=== PATIENT | male | born 1970 | race American Indian/Alaskan Native ===

== ENCOUNTER 2019-03-01 11:22 | Emergency (ER) | payer SELFPAY ==
--- NOTE | 2019-03-01 11:41 | Event Note ---
ED Screening Note Date of service: 03/01/19 Time: 11:36 ED Screening Note: This is a 48 y.o. M. that presents to the ER for medication refills. Reports being off medication for 2 weeks. Denies chest pain, sob, palpitations, weakness, dizziness, or headaches. This initial assessment/diagnostic orders/clinical plan/treatment(s) is/are subject to change based on patients health status, clinical progression and re- assessment by fellow clinical providers in the ED. Further treatment and workup at subsequent clinical providers discretion. Patient/guardian urged not to elope from the ED as their condition may be serious if not clinically assessed and managed. Initial orders include:
[2019-03-01] MEDS ORDERED: HCTZ PO ONE (13:03)
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
[2019-03-01 13:47] VITALS: BP 155/95
== END 2019-03-01 13:45 | disposition home or self-care (01) ==
LOC: ED 11:22
DX: I10 Essential (primary) hypertension (principal); F41.9 Anxiety disorder, unspecified; F17.200 Nicotine dependence, unspecified, uncomplicated; Z79.899 Other long term (current) drug therapy

== ENCOUNTER 2019-05-13 08:26 | Emergency (ER) | payer OTHER ==
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
--- NOTE | 2019-05-13 11:18 | Emergency Department Report ---
Chief Complaint: Recheck/Abnormal Lab/Rx Stated Complaint: MED REFILL Time Seen by Provider: 05/13/19 09:42 - HPI History of Present Illness: 48-year-old male patient presents for medication refillsx today. Patient states he has been out of his medications for the past 2 weeks due to loss of insurance. He states that he recently was approved for insurance but it does not start further about 45 days. Patient is requesting refills on lisinopril, hydrochlorothiazide, duloxetine, and amitriptyline. Patient does present with his medication bottles and all prescription information. He denies any chest pain, shortness of breath, headaches or other complaints or concerns - Exam Physical Exam: Patient is nontoxic appearing and in no acute distress Normal heart rate and rhythm noted Normal breath sounds noted. No respiratory distress noted Patient is alert and oriented 3 Patient has normal mood and affect MSE screening note: Focused history and physical exam performed. Due to findings the following was ordered: Patient presents for medication refills. Patient states he does not currently have a primary care provider. His vitals are within normal limits. Patient is nontoxic appearing. Patient does not meet criteria for emergent care; there is no threat of loss of life or limb. Patient referred to Dr. Irene, primary care for indication refills and further evaluation. ED Disposition for MSE Clinical Impression: Medication refill Disposition: DC-01 TO HOME OR SELFCARE Is pt being admited?: No Condition: Stable Additional Instructions: Hugo follow up with Dr. Kelly as discussed.
== END 2019-05-13 11:40 | disposition home or self-care (01) ==
LOC: ED 08:26
DX: I10 Essential (primary) hypertension (principal); Z76.0 Encounter for issue of repeat prescription

== ENCOUNTER 2021-05-25 20:07 | Inpatient (IN) | payer OTHER, MEDICARE ==
[2021-05-25] MEDS ORDERED: ACETAMINOPHEN W/CODEINE 300-30 MG TAB PO ONE (20:26)
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
[2021-05-25] MEDS ORDERED: SODIUM CHLORIDE 0.9% 1000 ML 1,000 ML IV ONE (21:27)
[2021-05-25] MEDS ORDERED: cefTRIAXone/NS 1 GM/50 ML 1 GM/50 ML BAG IV ONE (21:27)
[2021-05-25 22:04] LABS: Basophils # (Auto) 0.1 K/mm3 (0.0-0.1); Eosinophils # (Auto) 0.1 K/mm3 (0.0-0.4); Eosinophils % (Auto) 1.5 % (0.0-4.3); Hematocrit 44.7 % (35.5-45.6); Hemoglobin 14.8 gm/dl (11.8-15.2); Lymphocytes # (Auto) 1.5 K/mm3 (1.2-5.4); Lymphocytes % (Auto) 19.6 % (13.4-35.0); Mean Corpuscular HGB Conc 33 % (32-34); Mean Corpuscular Volume 90 fl (84-94); Monocytes # (Auto) 0.5 K/mm3 (0.0-0.8); Monocytes % (Auto) 6.6 % (0.0-7.3); Platelet Count 385 K/mm3 (140-440); Red Blood Count 4.98 M/mm3 (3.65-5.03); Red Cell Distribution Width 13.8 % (13.2-15.2)
[2021-05-25] MEDS ORDERED: AZITHROMYCIN 250 MG TAB PO ONE (22:08)
[2021-05-25 22:31] LABS: Alanine Aminotransferase 20 units/L (7-56); Albumin 3.6 g/dL (3.9-5); BUN/Creatinine Ratio 5; Blood Urea Nitrogen 4 mg/dL (9-20); Calcium 8.9 mg/dL (8.4-10.2); Hemolysis Index 116
[2021-05-25] MEDS ORDERED: IPRATROPIUM/ALBUTEROL SULFATE 3 ML AMPUL.NEB IH ONE (22:48)
[2021-05-25] MEDS ORDERED: dexAMETHasone 20 MG/5 ML VIAL IV ONE (22:48)
[2021-05-26] MEDS ORDERED: ALBUTEROL 2.5 MG/3 ML NEBU IH PRN (01:16)
[2021-05-26] MEDS ORDERED: hydrALAZINE 20 MG/1 ML INJ IV PRN (01:19)
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
[2021-05-26] MEDS: IPRATROPIUM/ALBUTEROL SULFATE 3 ML AMPUL.NEB IH SCH ×4 (02:14→22:06)
[2021-05-26] MEDS: ACETAMINOPHEN 325 MG TAB PO PRN (04:28)
[2021-05-26] MEDS ORDERED: SODIUM CHLORIDE 0.9% 1000 ML 1,000 ML IV ONE (05:18)
[2021-05-26] MEDS: FAMOTIDINE 20 MG TAB PO SCH ×2 (10:42→22:07)
[2021-05-26] MEDS: HYDROmorphone 1 MG/1 ML INJ IV PRN ×2 (10:49→15:21)
[2021-05-26] MEDS: ONDANSETRON 4 MG/2 ML INJ IV PRN (18:42)
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
[2021-05-26 19:17] LABS: C-Reactive Protein 2.4 mg/dL (0.00-1.30)
[2021-05-26] MEDS ORDERED: dexAMETHasone 4 MG/ML VIAL IV SCH (22:00)
[2021-05-26] MEDS ORDERED: AZITHROMYCIN/NS 500 MG/250 ML 500 MG/250 ML BAG IV SCH (22:00)
[2021-05-26] MEDS: cefTRIAXone/NS 2 GM/100 ML 2 GM/100 ML BAG IV SCH (22:07)
[2021-05-26] MEDS: AZITHROMYCIN 250 MG TAB PO SCH (22:07)
[2021-05-27] MEDS: HYDROmorphone 1 MG/1 ML INJ IV PRN ×3 (00:01→22:41)
[2021-05-27] MEDS: ZOLPIDEM 5 MG TAB PO PRN ×2 (00:11→22:40)
[2021-05-27] MEDS: IPRATROPIUM/ALBUTEROL SULFATE 3 ML AMPUL.NEB IH SCH ×5 (03:02→20:33)
[2021-05-27 05:25] LABS: Hemoglobin 13.4 gm/dl (11.8-15.2); Mean Corpuscular HGB Conc 34 % (32-34); Mean Corpuscular Volume 89 fl (84-94); Red Blood Count 4.52 M/mm3 (3.65-5.03)
[2021-05-27 05:42] LABS: BUN/Creatinine Ratio 13; Blood Urea Nitrogen 10 mg/dL (9-20); Calcium 8.1 mg/dL (8.4-10.2); Hemolysis Index 1
[2021-05-27 06:42] LABS: Basophils % (Manual) 0 % (0.0-1.8); Eosinophils % (Manual) 0 % (0.0-4.3); Monocytes % (Manual) 0 % (0.0-7.3); Total Cells Counted 100
[2021-05-27 06:44] LABS: Spherocytes Rare
[2021-05-27 06:45] LABS: Platelet Estimate Consistent w Auto
[2021-05-27 06:55] LABS: Platelet Count 366 K/mm3 (140-440)
[2021-05-27] MEDS: FAMOTIDINE 20 MG TAB PO SCH ×2 (09:45→22:27)
[2021-05-27] MEDS: DEXAMETHASONE 4 MG TAB PO SCH (09:45)
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
[2021-05-27] MEDS ORDERED: REMDESIVIR 200 MG in SODIUM CHLORIDE 0.9% 250ML 250 ML IV ONE (14:22)
[2021-05-27 16:29] LABS: Alanine Aminotransferase 21 units/L (7-56); Albumin 3.2 g/dL (3.9-5); BUN/Creatinine Ratio 13; Blood Urea Nitrogen 9 mg/dL (9-20); Calcium 8.4 mg/dL (8.4-10.2); Hemolysis Index 6
[2021-05-27] MEDS ORDERED: SODIUM CHLORIDE 0.9% 50 ML IVPB IV SCH (21:00)
[2021-05-27] MEDS: cefTRIAXone/NS 2 GM/100 ML 2 GM/100 ML BAG IV SCH (22:27)
[2021-05-27] MEDS: AZITHROMYCIN 250 MG TAB PO SCH (22:27)
[2021-05-27] MEDS: ONDANSETRON 4 MG/2 ML INJ IV PRN (22:45)
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
[2021-05-28] MEDS: ACETAMINOPHEN 325 MG TAB PO PRN (04:47)
[2021-05-28 07:07] LABS: Alanine Aminotransferase 21 units/L (7-56); BUN/Creatinine Ratio 9; Blood Urea Nitrogen 7 mg/dL (9-20); Calcium 8.1 mg/dL (8.4-10.2); Hemolysis Index 121
[2021-05-28] MEDS ORDERED: IPRATROPIUM/ALBUTEROL SULFATE 3 ML AMPUL.NEB IH SCH (08:00)
[2021-05-28] MEDS: FAMOTIDINE 20 MG TAB PO SCH ×2 (09:08→21:42)
[2021-05-28] MEDS: MORPHINE 2 MG/1 ML INJ IV PRN ×2 (09:08→13:50)
[2021-05-28] MEDS: DEXAMETHASONE 4 MG TAB PO SCH (09:39)
[2021-05-28] MEDS ORDERED: ALPRAZolam 1 MG TAB PO PRN (14:00)
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
[2021-05-28] MEDS ORDERED: REMDESIVIR 100 MG in SODIUM CHLORIDE 0.9% 250ML 250 ML IV SCH (21:00)
[2021-05-28] MEDS: hydroCHLOROthiazide 25 MG TAB PO SCH (21:42)
[2021-05-28] MEDS: AMITRIPTYLINE 25 MG TAB PO SCH (21:42)
[2021-05-28] MEDS: AZITHROMYCIN 250 MG TAB PO SCH (21:42)
[2021-05-28] MEDS: amLODIPine 10 MG TAB PO SCH (21:43)
[2021-05-28] MEDS: DULoxetine 30 MG CAP PO SCH (21:43)
[2021-05-28] MEDS: cefTRIAXone/NS 2 GM/100 ML 2 GM/100 ML BAG IV SCH (21:43)
[2021-05-28] MEDS ORDERED: AMITRIPTYLINE 50 MG PO SCH (22:00)
[2021-05-29] MEDS: MORPHINE 2 MG/1 ML INJ IV PRN ×4 (00:45→21:35)
[2021-05-29] MEDS: amLODIPine 10 MG TAB PO SCH (09:06)
[2021-05-29] MEDS: hydroCHLOROthiazide 25 MG TAB PO SCH (09:06)
[2021-05-29] MEDS: FAMOTIDINE 20 MG TAB PO SCH ×2 (09:06→21:35)
[2021-05-29] MEDS: DULoxetine 30 MG CAP PO SCH (09:06)
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
[2021-05-29 11:13] LABS: Alanine Aminotransferase 22 units/L (7-56); Albumin 3.2 g/dL (3.9-5); Blood Urea Nitrogen 5 mg/dL (9-20); Calcium 8.7 mg/dL (8.4-10.2); Hemolysis Index 8
[2021-05-29 11:19] LABS: BUN/Creatinine Ratio 8
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
[2021-05-29] MEDS ORDERED: POTASSIUM CHLORIDE ER 20 MEQ TAB PO NR ×2 (13:30→17:00)
[2021-05-29] MEDS: AMITRIPTYLINE 25 MG TAB PO SCH (21:35)
[2021-05-29] MEDS: cefTRIAXone/NS 2 GM/100 ML 2 GM/100 ML BAG IV SCH (21:35)
[2021-05-29] MEDS: AZITHROMYCIN 250 MG TAB PO SCH (21:36)
[2021-05-30] MEDS: MORPHINE 2 MG/1 ML INJ IV PRN ×4 (02:51→21:25)
[2021-05-30 07:25] LABS: Basophils % (Auto) 0.6 % (0.0-1.8); Eosinophils # (Auto) 0.4 K/mm3 (0.0-0.4); Hematocrit 43.3 % (35.5-45.6); Lymphocytes # (Auto) 1.3 K/mm3 (1.2-5.4); Lymphocytes % (Auto) 17.3 % (13.4-35.0); Mean Corpuscular HGB Conc 32 % (32-34); Mean Corpuscular Volume 88 fl (84-94); Monocytes # (Auto) 0.8 K/mm3 (0.0-0.8); Monocytes % (Auto) 10.7 % (0.0-7.3); Platelet Count 321 K/mm3 (140-440); Red Blood Count 4.95 M/mm3 (3.65-5.03); Red Cell Distribution Width 13.7 % (13.2-15.2)
[2021-05-30 07:41] LABS: Alanine Aminotransferase 17 units/L (7-56); Albumin 3.1 g/dL (3.9-5); BUN/Creatinine Ratio 9; Blood Urea Nitrogen 7 mg/dL (9-20); Calcium 8.1 mg/dL (8.4-10.2); Hemolysis Index 1
[2021-05-30 07:42] LABS: BUN/Creatinine Ratio 9; Blood Urea Nitrogen 7 mg/dL (9-20); Calcium 8.4 mg/dL (8.4-10.2); Hemolysis Index 4
[2021-05-30] MEDS ORDERED: POTASSIUM CHLORIDE ER 20 MEQ TAB PO NR ×2 (08:30→12:00)
[2021-05-30] MEDS: FAMOTIDINE 20 MG TAB PO SCH ×2 (09:01→21:21)
[2021-05-30] MEDS: hydroCHLOROthiazide 25 MG TAB PO SCH (09:01)
[2021-05-30] MEDS: amLODIPine 10 MG TAB PO SCH (09:01)
[2021-05-30] MEDS: DULoxetine 30 MG CAP PO SCH (09:01)
[2021-05-30] MEDS: HYDROmorphone 1 MG/1 ML INJ IV PRN ×3 (09:45→17:30)
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
[2021-05-30] MEDS: AZITHROMYCIN 250 MG TAB PO SCH (21:21)
[2021-05-30] MEDS: AMITRIPTYLINE 25 MG TAB PO SCH (21:22)
[2021-05-31] MEDS: MORPHINE 2 MG/1 ML INJ IV PRN ×3 (03:54→15:27)
[2021-05-31] MEDS: amLODIPine 10 MG TAB PO SCH (09:23)
[2021-05-31] MEDS: hydroCHLOROthiazide 25 MG TAB PO SCH (09:23)
[2021-05-31] MEDS: DULoxetine 30 MG CAP PO SCH (09:23)
[2021-05-31] MEDS: FAMOTIDINE 20 MG TAB PO SCH ×2 (09:23→21:15)
[2021-05-31] MEDS: POTASSIUM CHLORIDE ER 20 MEQ TAB PO SCH (09:24)
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
--- NOTE | 2021-05-31 15:54 | XRay Report ---
Chest 2 views INDICATION: Dyspnea IMPRESSION: Moderate bilateral cardiopulmonary edema with small bilateral pleural effusions. The hear t size is mildly enlarged. Signer Name: Ashwin Coe MD Signed: 05/31/2021 3:49 PM Workstation Name: [id number]
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
[2021-05-31] MEDS: HYDROmorphone 1 MG/1 ML INJ IV PRN (21:14)
[2021-05-31] MEDS: AMITRIPTYLINE 25 MG TAB PO SCH (21:15)
[2021-06-01] MEDS: MORPHINE 2 MG/1 ML INJ IV PRN (01:16)
[2021-06-01] MEDS: HYDROmorphone 1 MG/1 ML INJ IV PRN ×4 (05:49→19:49)
[2021-06-01] MEDS ORDERED: POTASSIUM CHLORIDE ER 20 MEQ TAB PO NR (08:30)
[2021-06-01] MEDS: POTASSIUM CHLORIDE ER 20 MEQ TAB PO SCH (11:10)
[2021-06-01] MEDS: FAMOTIDINE 20 MG TAB PO SCH ×2 (11:10→21:22)
[2021-06-01] MEDS: DULoxetine 30 MG CAP PO SCH (11:11)
[2021-06-01] MEDS: FUROSEMIDE 40 MG/4 ML INJ IV SCH (11:16)
[2021-06-01] MEDS: LISINOPRIL 5 MG TAB PO SCH (11:16)
[2021-06-01] MEDS: amLODIPine 10 MG TAB PO SCH (11:16)
[2021-06-01] MEDS: carvediloL 3.125 MG TAB PO SCH ×2 (11:17→21:22)
[2021-06-01] MEDS: hydroCHLOROthiazide 25 MG TAB PO SCH (11:18)
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
[2021-06-01] MEDS: ASPIRIN EC 325 MG TAB PO SCH (15:03)
[2021-06-01] MEDS: AMITRIPTYLINE 25 MG TAB PO SCH (21:22)
[2021-06-02] MEDS: HYDROmorphone 1 MG/1 ML INJ IV PRN ×6 (00:10→22:02)
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
[2021-06-02] MEDS: ASPIRIN EC 325 MG TAB PO SCH (09:28)
[2021-06-02] MEDS: FAMOTIDINE 20 MG TAB PO SCH ×2 (09:28→21:59)
[2021-06-02] MEDS: hydroCHLOROthiazide 25 MG TAB PO SCH (09:29)
[2021-06-02] MEDS: LISINOPRIL 5 MG TAB PO SCH (09:29)
[2021-06-02] MEDS: amLODIPine 10 MG TAB PO SCH (09:29)
[2021-06-02] MEDS: carvediloL 3.125 MG TAB PO SCH ×2 (09:30→22:00)
[2021-06-02] MEDS: FUROSEMIDE 40 MG/4 ML INJ IV SCH (09:30)
[2021-06-02] MEDS: POTASSIUM CHLORIDE ER 20 MEQ TAB PO SCH (09:30)
[2021-06-02] MEDS: DULoxetine 30 MG CAP PO SCH (09:30)
[2021-06-02 11:38] LABS: BUN/Creatinine Ratio 11; Blood Urea Nitrogen 10 mg/dL (9-20); Calcium 8.4 mg/dL (8.4-10.2); Hemolysis Index 2
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
--- NOTE | 2021-06-02 13:50 | Progress Note ---
Assessment and Plan - Patient Problems (1) CHF (congestive heart failure) Current Visit: Yes Status: Acute Subjective Date of service: 06/02/21 Principal diagnosis: Pneumonia, acute respiratory failure with hypoxia Interval history: FEELS ALITTLE BETTER,,,MILD CP Objective Vital Signs Temp Pulse Resp BP Pulse Ox 06/02/21 12:17 98.0 F 109 H 18 110/78 91 06/02/21 08:01 98.2 F 109 H 18 100/61 95 06/02/21 04:49 97.5 F L 110 H 20 118/73 97 06/02/21 00:07 98.0 F 110 H 20 120/73 96 06/01/21 21:43 95 06/01/21 20:26 98.5 F 101 H 20 132/78 95 06/01/21 20:00 102 H 06/01/21 18:32 94 06/01/21 16:36 98.2 F 106 H 18 119/82 94 - Physical Examination General: No Apparent Distress HEENT: Positive: Normocephaly Neck: Positive: neck supple Cardiac: Positive: Regular Rhythm Lungs: Positive: clear to auscultation Neuro: Positive: Grossly Intact Abdomen: Positive: Unremarkable Extremities: Present: normal - Labs and Meds Comprehensive Metabolic Panel 06/02/21 Range/Units 10:52 Sodium 132 L D (137-145) mmol/L Potassium 3.7 D (3.6-5.0) mmol/L Chloride 95.5 L (98-107) mmol/L Carbon Dioxide 29 (22-30) mmol/L BUN 10 (9-20) mg/dL Creatinine 0.9 (0.8-1.3) mg/dL Glucose 95 (75-100) mg/dL Calcium 8.4 (8.4-10.2) mg/dL
--- NOTE | 2021-06-02 20:09 | Electrocardiograph Report ---
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
[2021-06-02] MEDS: AMITRIPTYLINE 25 MG TAB PO SCH (21:59)
[2021-06-03] MEDS: HYDROmorphone 1 MG/1 ML INJ IV PRN ×6 (01:19→23:17)
[2021-06-03 07:58] LABS: Basophils # (Auto) 0.1 K/mm3 (0.0-0.1); Basophils % (Auto) 2.1 % (0.0-1.8); Eosinophils # (Auto) 0.3 K/mm3 (0.0-0.4); Hematocrit 40.9 % (35.5-45.6); Hemoglobin 13.5 gm/dl (11.8-15.2); Lymphocytes # (Auto) 1.4 K/mm3 (1.2-5.4); Lymphocytes % (Auto) 30.3 % (13.4-35.0); Mean Corpuscular HGB Conc 33 % (32-34); Mean Corpuscular Volume 88 fl (84-94); Monocytes # (Auto) 0.6 K/mm3 (0.0-0.8); Monocytes % (Auto) 13.5 % (0.0-7.3); Platelet Count 352 K/mm3 (140-440); Red Blood Count 4.67 M/mm3 (3.65-5.03); Red Cell Distribution Width 13.6 % (13.2-15.2)
[2021-06-03 08:19] LABS: BUN/Creatinine Ratio 14; Blood Urea Nitrogen 11 mg/dL (9-20); Calcium 8.9 mg/dL (8.4-10.2); Hemolysis Index 1
[2021-06-03] MEDS ORDERED: REGADENOSON 0.4 MG/5 ML INJ IV ONE ×2 (08:27→11:05)
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
[2021-06-03] MEDS: carvediloL 3.125 MG TAB PO SCH ×2 (13:27→21:55)
[2021-06-03] MEDS: ASPIRIN EC 325 MG TAB PO SCH (13:27)
[2021-06-03] MEDS: POTASSIUM CHLORIDE ER 20 MEQ TAB PO SCH (13:27)
[2021-06-03] MEDS: amLODIPine 10 MG TAB PO SCH (13:27)
[2021-06-03] MEDS: DULoxetine 30 MG CAP PO SCH (13:28)
[2021-06-03] MEDS: FUROSEMIDE 40 MG/4 ML INJ IV SCH (13:28)
[2021-06-03] MEDS: LISINOPRIL 5 MG TAB PO SCH (13:28)
[2021-06-03] MEDS: FAMOTIDINE 20 MG TAB PO SCH ×2 (13:28→21:55)
--- NOTE | 2021-06-03 13:29 | Progress Note ---
Assessment and Plan - Patient Problems (1) CHF (congestive heart failure) Current Visit: Yes Status: Acute Plan to address problem: Patient presents with shortness of breath, bilateral interstitial infiltrates, and an underlying dilated cardiomyopathy with ejection fraction reported 20 to 25%. Chronicity of the cardiomyopathy is uncertain, patient denies any prior cardiac history or significant prior cardiac work-up. We will continue guideline directed medical therapy including optimal diuretics. Today, he has completed a Lexiscan thallium stress test, myocardial perfusion images are pending. Subjective Date of service: 06/03/21 Principal diagnosis: Pneumonia, acute respiratory failure with hypoxia Interval history: 50-year-old man who was admitted with apparent new onset congestive heart failure. He states that he has no prior cardiac history, has not seen a timber faller in the past. He does follow-up with his primary doctor at [facility], who treats him for chronic longstanding and by his account poorly controlled hypertension. On this presentation, his blood pressure has been fairly well controlled. The c hest x-ray on admission showed bilateral patchy infiltrates, which is showing partial resolution on follow-up chest x-ray 2 to 3 days later. EKG was a sinus rhythm with no acute ischemic changes. However the echocardiogram showed dilated cardiomyopathy with left ventricular ejection fraction reported at 20 to 25%. Today, the patient was referred for a Lexiscan thallium stress test for ischemia assessment of his cardiomyopathy and heart failure. Objective Vital Signs Temp Pulse Pulse Resp BP Pulse Ox 06/03/21 10:37 0 L 06/03/21 03:12 98.0 F 100 H 16 105/70 95 06/02/21 23:04 98.1 F 106 H 14 121/79 94 06/02/21 19:15 97.6 F 101 H 14 135/84 95 06/02/21 16:29 97.4 F L 100 H 18 127/83 97 06/02/21 15:38 111 H 95 - Physical Examination General: No Apparent Distress HEENT: Positive: Normocephaly Neck: Positive: neck supple Cardiac: Positive: Reg Rate and Rhythm Lungs: Positive: Decreased Breath Sounds Neuro: Positive: Grossly Intact Abdomen: Positive: Unremarkable Skin: Positive: Clear Extremities: Absent: edema - Labs and Meds CBC 06/03/21 Range/Units 07:14 WBC 4.6 (4.5-11.0) K/mm3 RBC 4.67 (3.65-5.03) M/mm3 Hgb 13.5 (11.8-15.2) gm/dl Hct 40.9 (35.5-45.6) % Plt Count 352 (140-440) K/mm3 Lymph # (Auto) 1.4 (1.2-5.4) K/mm3 [place] # (Auto) 0.6 (0.0-0.8) K/mm3 Eos # (Auto) 0.3 (0.0-0.4) K/mm3 Baso # (Auto) 0.1 (0.0-0.1) K/mm3 Comprehensive Metabolic Panel 06/03/21 Range/Units 07:14 Sodium 141 D (137-145) mmol/L Potassium 3.9 (3.6-5.0) mmol/L Chloride 100.9 (98-107) mmol/L Carbon Dioxide 27 (22-30) mmol/L BUN 11 (9-20) mg/dL Creatinine 0.8 (0.8-1.3) mg/dL Glucose 90 (75-100) mg/dL Calcium 8.9 (8.4-10.2) mg/dL
--- NOTE | 2021-06-03 13:42 | Progress Note ---
Assessment and Plan 50 y/o male with systolic heart failure and acute respiratory failure. 1. Diuresis 2. Monitor fluid balance 3. Follow up cards recs Subjective Date of service: 06/03/21 Principal diagnosis: Pneumonia, acute respiratory failure with hypoxia Interval history: No acute events. Objective Vital Signs - 12hr 06/03/21 06/03/21 06/03/21 03:12 10:37 13:26 Temperature 98.0 F 98.0 F Pulse Rate 100 H 104 H Respiratory 16 19 Rate Blood Pressure 105/70 138/67 O2 Sat by Pulse 95 0 L 98 Oximetry Constitutional: no acute distress Eyes: non-icteric ENT: oropharynx moist, other (Crowded oropharynx Mallampati 3) Neck: supple, no JVD Ascultation: Bilateral: clear, diminished breath sounds (At bases) Cardiovascular: regular rate and rhythm Gastrointestinal: normoactive bowel sounds, soft, non-tender Integumentary: normal Extremities: no cyanosis, no edema Neurologic: normal mental status, non-focal exam Psychiatric: mood appropriate CBC and BMP: 06/03/21 07:14 06/03/21 07:14 ABG, PT/INR, D-dimer: PT/INR, D-dimer D-Dimer 544.22 ng/mlDDU (0-234) H 05/26/21 18:43 Abnormal lab findings: Abnormal Labs 05/25/21 05/25/21 05/25/21 21:47 21:47 21:47 [place] % (Auto) Eos % (Auto) Baso % (Auto) Seg Neutrophils % 71.3 H Seg Neuts % (Manual) Lymphocytes % (Manual) Seg Neutrophils # Man Lymphocytes # (Manual) D-Dimer Sodium Potassium Chloride Carbon Dioxide BUN 4 L Creatinine Glucose 111 H Lactic Acid 2.10 H* Calcium Lactate Dehydrogenase C-Reactive Protein NT-Pro-B Natriuret Pep Total Protein Albumin 3.6 L 05/25/21 05/26/21 05/26/21 23:25 04:22 07:48 [place] % (Auto) Eos % (Auto) Baso % (Auto) Seg Neutrophils % Seg Neuts % (Manual) Lymphocytes % (Manual) Seg Neutrophils # Man Lymphocytes # (Manual) D-Dimer Sodium Potassium Chloride Carbon Dioxide BUN Creatinine Glucose Lactic Acid 2.20 H* 2.70 H* 2.70 H* Calcium Lactate Dehydrogenase C-Reactive Protein NT-Pro-B Natriuret Pep Total Protein Albumin 05/26/21 05/26/21 05/27/21 18:43 18:43 04:32 [place] % (Auto) Eos % (Auto) Baso % (Auto) Seg Neutrophils % Seg Neuts % (Manual) 99.0 H Lymphocytes % (Manual) 1.0 L Seg Neutrophils # Man 9.2 H Lymphocytes # (Manual) 0.1 L D-Dimer 544.22 H Sodium Potassium Chloride Carbon Dioxide BUN Creatinine Glucose 108 H Lactic Acid Calcium Lactate Dehydrogenase 263 H C-Reactive Protein 2.40 H NT-Pro-B Natriuret Pep Total Protein Albumin 05/27/21 05/27/21 05/28/21 04:32 15:33 05:35 [place] % (Auto) Eos % (Auto) Baso % (Auto) Seg Neutrophils % Seg Neuts % (Manual) Lymphocytes % (Manual) Seg Neutrophils # Man Lymphocytes # (Manual) D-Dimer Sodium 130 L D Potassium 3.2 L Chloride 97.3 L Carbon Dioxide 16 L D BUN 7 L Creatinine 0.7 L Glucose 121 H 101 H 105 H Lactic Acid Calcium 8.1 L 8.1 L Lactate Dehydrogenase C-Reactive Protein NT-Pro-B Natriuret Pep Total Protein 6.1 L Albumin 3.2 L 3.0 L 05/29/21 05/30/21 05/30/21 10:06 06:43 06:43 [place] % (Auto) 10.7 H Eos % (Auto) 5.0 H Baso % (Auto) Seg Neutrophils % Seg Neuts % (Manual) Lymphocytes % (Manual) Seg Neutrophils # Man Lymphocytes # (Manual) D-Dimer Sodium Potassium 3.0 L 3.1 L Chloride 97.9 L 97.3 L Carbon Dioxide 31 H BUN 5 L 7 L Creatinine 0.6 L Glucose Lactic Acid Calcium 8.1 L Lactate Dehydrogenase C-Reactive Protein NT-Pro-B Natriuret Pep Total Protein 6.1 L Albumin 3.2 L 3.1 L 05/30/21 05/30/21 05/31/21 06:43 06:43 15:46 [place] % (Auto) Eos % (Auto) Baso % (Auto) Seg Neutrophils % Seg Neuts % (Manual) Lymphocytes % (Manual) Seg Neutrophils # Man Lymphocytes # (Manual) D-Dimer Sodium Potassium 3.0 L Chloride Carbon Dioxide BUN 7 L Creatinine Glucose Lactic Acid Calcium Lactate Dehydrogenase C-Reactive Protein NT-Pro-B Natriuret Pep 3384 H 2071 H Total Protein Albumin 06/02/21 06/03/21 10:52 07:14 [place] % (Auto) 13.5 H Eos % (Auto) 6.0 H Baso % (Auto) 2.1 H Seg Neutrophils % Seg Neuts % (Manual) Lymphocytes % (Manual) Seg Neutrophils # Man Lymphocytes # (Manual) D-Dimer Sodium 132 L D Potassium Chloride 95.5 L Carbon Dioxide BUN Creatinine Glucose Lactic Acid Calcium Lactate Dehydrogenase C-Reactive Protein NT-Pro-B Natriuret Pep Total Protein Albumin
--- NOTE | 2021-06-03 13:47 | Nuclear Medicine Report ---
APPROVED REPORT Exam: Nuclear Stress Test Indication: Chest pain BMI: 0 Stress Test Details HR Max Heart Rate (APMHR): 169 bpm Target HR (85% APMHR): 143 bpm BP ECG Resting ECG: Sinus Rhythm Stress ECG: Sinus Rhythm ST Change: None Arrhythmia: APC's Recovery ECG: Sinus Rhythm Recovery ST Change: None Recovery Arrhythmia: APC Clinical Reason for Termination: Completed protocol Stress ECG Conclusion Patient completed pharmacologic stress protocol, no chest pain and no ST changes of ischemia. Myocardial perfusion images are dictated separately. NM EXAM: Myocardial Perfusion REST/STRESS Resting Data Rest SPECT myocardial perfusion imaging was performed in supine position 45 minutes following the intravenous injection of 10 mCi of Tc-99m Myoview. Time of rest injection: 0800 Date: 06/03/2021 Pharmacologic Stress Pharmacologic stress test was performed by injecting Regadenoson 0.4 mg IV push followed by the intravenous injection of 28 mCi of Tc-99m Myoview. Time of stress injection: Date: 06/03/2021 Study Data TID = 1.05. Perfusion Wall Motion The left ventricle is severely dilated, with severe left ventricular systolic dysfunction, diffuse hypokinesis, ejection fraction 22% by gated SPECT analysis. Nuclear Conclusion ECG Findings: negative for ischemia Clinical Findings: negative for ischemia Nuclear Findings: negative for ischemia Left Ventricular Function: abnormal Risk Study: moderate The left ventricle is severely dilated, with a severe related cardiomyopathy, ejection fraction 22%. Perfusion images show somewhat heterogeneous uptake but no significant fixed or reversible defects, study suggest a nonischemic cardiomyopathy. Clinical correlation is recommended. Conclusion Patient completed pharmacologic stress protocol, no chest pain and no ST changes of ischemia. Myocardial perfusion images are dictated separately.
[2021-06-03] MEDS: AMITRIPTYLINE 25 MG TAB PO SCH (21:57)
[2021-06-04] MEDS: HYDROmorphone 1 MG/1 ML INJ IV PRN ×3 (03:28→13:06)
[2021-06-04 07:49] VITALS: BP 111/70
[2021-06-04] MEDS: POTASSIUM CHLORIDE ER 20 MEQ TAB PO SCH (09:20)
[2021-06-04] MEDS: ASPIRIN EC 325 MG TAB PO SCH (09:21)
[2021-06-04] MEDS: carvediloL 3.125 MG TAB PO SCH (09:21)
[2021-06-04] MEDS: LISINOPRIL 5 MG TAB PO SCH (09:21)
[2021-06-04] MEDS: FAMOTIDINE 20 MG TAB PO SCH (09:21)
[2021-06-04] MEDS: amLODIPine 10 MG TAB PO SCH (09:22)
[2021-06-04] MEDS: DULoxetine 30 MG CAP PO SCH (09:24)
--- NOTE | 2021-06-04 09:25 | Progress Note ---
Assessment and Plan 50 y/o male with systolic heart failure and acute respiratory failure. 06/04/21: Pulm status improved with diuresis. No evidence of underlying lung disease. Will stop albuterol and sign off 1. Diuresis 2. Monitor fluid balance 3. Follow up cards recs Subjective Date of service: 06/04/21 Principal diagnosis: Pneumonia, acute respiratory failure with hypoxia Interval history: Per chart, last night weaned to room air. Objective Vital Signs - 12hr 06/03/21 06/04/21 06/04/21 21:55 00:00 03:16 Temperature 97.9 F 98.1 F Pulse Rate 92 H 92 H 102 H Respiratory 18 18 Rate Blood Pressure 117/73 123/75 Blood Pressure 110/76 [Right] O2 Sat by Pulse 100 97 Oximetry 06/04/21 06/04/21 06:00 07:47 Temperature 98.0 F Pulse Rate 103 H Respiratory 20 Rate Blood Pressure 111/70 Blood Pressure [Right] O2 Sat by Pulse 98 98 Oximetry Constitutional: no acute distress Eyes: non-icteric ENT: oropharynx moist, other (Crowded oropharynx Mallampati 3) Neck: supple, no JVD Ascultation: Bilateral: clear, diminished breath sounds (At bases) Cardiovascular: regular rate and rhythm Gastrointestinal: normoactive bowel sounds, soft, non-tender Integumentary: normal Extremities: no cyanosis, no edema Neurologic: normal mental status, non-focal exam Psychiatric: mood appropriate CBC and BMP: 06/03/21 07:14 06/03/21 07:14 ABG, PT/INR, D-dimer: PT/INR, D-dimer D-Dimer 544.22 ng/mlDDU (0-234) H 05/26/21 18:43 Abnormal lab findings: Abnormal Labs 05/25/21 05/25/21 05/25/21 21:47 21:47 21:47 [place] % (Auto) Eos % (Auto) Baso % (Auto) Seg Neutrophils % 71.3 H Seg Neuts % (Manual) Lymphocytes % (Manual) Seg Neutrophils # Man Lymphocytes # (Manual) D-Dimer Sodium Potassium Chloride Carbon Dioxide BUN 4 L Creatinine Glucose 111 H Lactic Acid 2.10 H* Calcium Lactate Dehydrogenase C-Reactive Protein NT-Pro-B Natriuret Pep Total Protein Albumin 3.6 L 05/25/21 05/26/2105/26/22 23:25 04:22 07:48 [place] % (Auto) Eos % (Auto) Baso % (Auto) Seg Neutrophils % Seg Neuts % (Manual) Lymphocytes % (Manual) Seg Neutrophils # Man Lymphocytes # (Manual) D-Dimer Sodium Potassium Chloride Carbon Dioxide BUN Creatinine Glucose Lactic Acid 2.20 H* 2.70 H* 2.70 H* Calcium Lactate Dehydrogenase C-Reactive Protein NT-Pro-B Natriuret Pep Total Protein Albumin 05/26/21 05/26/21 05/27/21 18:43 18:43 04:32 [place] % (Auto) Eos % (Auto) Baso % (Auto) Seg Neutrophils % Seg Neuts % (Manual) 99.0 H Lymphocytes % (Manual) 1.0 L Seg Neutrophils # Man 9.2 H Lymphocytes # (Manual) 0.1 L D-Dimer 544.22 H Sodium Potassium Chloride Carbon Dioxide BUN Creatinine Glucose 108 H Lactic Acid Calcium Lactate Dehydrogenase 263 H C-Reactive Protein 2.40 H NT-Pro-B Natriuret Pep Total Protein Albumin 05/27/21 05/27/21 05/28/21 04:32 15:33 05:35 [place] % (Auto) Eos % (Auto) Baso % (Auto) Seg Neutrophils % Seg Neuts % (Manual) Lymphocytes % (Manual) Seg Neutrophils # Man Lymphocytes # (Manual) D-Dimer Sodium 130 L D Potassium 3.2 L Chloride 97.3 L Carbon Dioxide 16 L D BUN 7 L Creatinine 0.7 L Glucose 121 H 101 H 105 H Lactic Acid Calcium 8.1 L 8.1 L Lactate Dehydrogenase C-Reactive Protein NT-Pro-B Natriuret Pep Total Protein 6.1 L Albumin 3.2 L 3.0 L 05/29/21 05/30/21 05/30/21 10:06 06:43 06:43 [place] % (Auto) 10.7 H Eos % (Auto) 5.0 H Baso % (Auto) Seg Neutrophils % Seg Neuts % (Manual) Lymphocytes % (Manual) Seg Neutrophils # Man Lymphocytes # (Manual) D-Dimer Sodium Potassium 3.0 L 3.1 L Chloride 97.9 L 97.3 L Carbon Dioxide 31 H BUN 5 L 7 L Creatinine 0.6 L Glucose Lactic Acid Calcium 8.1 L Lactate Dehydrogenase C-Reactive Protein NT-Pro-B Natriuret Pep Total Protein 6.1 L Albumin 3.2 L 3.1 L 05/30/21 05/30/21 05/31/21 06:43 06:43 15:46 [place] % (Auto) Eos % (Auto) Baso % (Auto) Seg Neutrophils % Seg Neuts % (Manual) Lymphocytes % (Manual) Seg Neutrophils # Man Lymphocytes # (Manual) D-Dimer Sodium Potassium 3.0 L Chloride Carbon Dioxide BUN 7 L Creatinine Glucose Lactic Acid Calcium Lactate Dehydrogenase C-Reactive Protein NT-Pro-B Natriuret Pep 3384 H 2071 H Total Protein Albumin 06/02/21 06/03/21 10:52 07:14 [place] % (Auto) 13.5 H Eos % (Auto) 6.0 H Baso % (Auto) 2.1 H Seg Neutrophils % Seg Neuts % (Manual) Lymphocytes % (Manual) Seg Neutrophils # Man Lymphocytes # (Manual) D-Dimer Sodium 132 L D Potassium Chloride 95.5 L Carbon Dioxide BUN Creatinine Glucose Lactic Acid Calcium Lactate Dehydrogenase C-Reactive Protein NT-Pro-B Natriuret Pep Total Protein Albumin
[2021-06-04] MEDS ORDERED: FUROSEMIDE 40 MG TAB PO SCH (10:00)
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
--- NOTE | 2021-06-04 13:29 | Progress Note ---
Assessment and Plan - Patient Problems (1) CHF (congestive heart failure) Current Visit: Yes Status: Acute Plan to address problem: Patient admitted with shortness of breath, bilateral interstitial infiltrates, and an underlying dilated cardiomyopathy with ejection fraction reported 20 to 25%. Chronicity of the cardiomyopathy is uncertain, patient denies any prior cardiac history or significant prior cardiac work-up. A Lexiscan thallium stress test is negative for significant ischemia as a basis for underlying cardiomyopathy. We will continue guideline directed medical therapy including optimal diuretics for a nonischemic cardiomyopathy. Regimen of furosemide 40 mg, spironolactone 25 mg, lisinopril 20 mg, carvedilol 12.5 mg twice daily, and baby aspirin. Otherwise stable for cardiac discharge, I have recommended outpatient cardiac follow-up in 5 to 7 days, salt restricted diet and full compliance with medical regimen. Subjective Date of service: 06/04/21 Principal diagnosis: Pneumonia, acute respiratory failure with hypoxia Interval history: Patient is comfortable, no new cardiac complaints, no new cardiac events reported. 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 Objective Vital Signs Temp Pulse Pulse Resp BP BP Pulse Ox 06/04/21 08:00 101 H 98 06/04/21 07:47 98.0 F 103 H 20 111/70 98 06/04/21 06:00 98 06/04/21 03:16 98.1 F 102 H 18 123/75 97 06/04/21 00:00 97.9 F 92 H 18 110/76 100 06/03/21 21:55 92 H 117/73 06/03/21 20:41 92 06/03/21 19:18 97.7 F 92 H 18 117/73 98 06/03/21 18:00 98 06/03/21 16:09 97.9 F 98 H 18 109/77 99 - Physical Examination General: Appears Well, No Apparent Distress HEENT: Positive: Normocephaly Neck: Positive: neck supple Cardiac: Positive: Reg Rate and Rhythm Lungs: Positive: Decreased Breath Sounds Neuro: Positive: Grossly Intact Abdomen: Positive: Unremarkable Skin: Positive: Clear Extremities: Absent: edema
[2021-06-04] MEDS ORDERED: SPIRONOLACTONE 25 MG TAB PO SCH (14:00)
[2021-06-04] MEDS ORDERED: LISINOPRIL 20 MG TAB PO SCH (14:00)
[2021-06-04] MEDS ORDERED: carvediloL 12.5 MG TAB PO SCH (14:00)
[2021-06-05] MEDS ORDERED: ASPIRIN EC 81 MG TAB PO SCH (10:00)
== END 2021-06-04 16:46 | disposition home or self-care (01) | DRG 193 ==
LOC: ED 20:07 → 3A 05-26 01:16 → 4A 05-27 16:23
PROVIDERS: ADMIT Hospitalist; ATTEND Student in an Organized Health Care Education/Training Program
DX: J18.9 Pneumonia, unspecified organism (principal); I50.21 Acute systolic (congestive) heart failure; J96.01 Acute respiratory failure with hypoxia; I42.0 Dilated cardiomyopathy; I11.0 Hypertensive heart disease with heart failure; E87.6 Hypokalemia; Z20.822 Contact with and (suspected) exposure to COVID-19; I25.10 Atherosclerotic heart disease of native coronary artery without angina pectoris; V89.2XXA Person injured in unspecified motor-vehicle accident, traffic, initial encounter; Y93.89 Activity, other specified; Y92.89 Other specified places as the place of occurrence of the external cause; Y99.8 Other external cause status
CPT/HCPCS: 36415; 70450; 71046; 72040; 78452; 80048; 80053; 82140; 82728; 82947; 82962; 83615; 83735; 83880; 84145; 84484; 85007; 85025; 85379; 86140; 87040; 93005; 93017; 93306; 94640; 94760; G0378; Q0162; A9502; J0696; J1100; J1170; J1940; J2270; J2405; J2785; J7030; J8540; U0003

== ENCOUNTER 2021-12-30 16:10 | Emergency (ER) | payer MEDICARE ==
[2021-12-30] MEDS ORDERED: ASPIRIN 325 MG TAB PO ONE (16:23)
[2021-12-30 16:57] LABS: Basophils % (Auto) 0.9 % (0.0-1.8); Eosinophils % (Auto) 1.1 % (0.0-4.3); Hemoglobin 15.6 gm/dl (11.8-15.2); Lymphocytes # (Auto) 0.8 K/mm3 (1.2-5.4); Lymphocytes % (Auto) 23.5 % (13.4-35.0); Mean Corpuscular HGB Conc 33 % (32-34); Mean Corpuscular Volume 89 fl (84-94); Monocytes # (Auto) 0.5 K/mm3 (0.0-0.8); Monocytes % (Auto) 14.7 % (0.0-7.3); Platelet Count 179 K/mm3 (140-440); Red Blood Count 5.26 M/mm3 (3.65-5.03); Red Cell Distribution Width 13.1 % (13.2-15.2)
[2021-12-30 17:15] LABS: INR 1.2 (0.87-1.13)
[2021-12-30 17:17] LABS: Partial Thromboplastin Time 50.1 Sec. (24.2-36.6)
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
[2021-12-30 17:44] LABS: BUN/Creatinine Ratio TNR; Blood Urea Nitrogen TNR mg/dL (9-20)
[2021-12-30 17:45] LABS: Alanine Aminotransferase TNR units/L (7-56); Albumin TNR g/dL (3.9-5); Calcium TNR mg/dL (8.4-10.2); Hemolysis Index TNR
[2021-12-30 19:11] LABS: Alanine Aminotransferase 35 units/L (7-56); Albumin 4.4 g/dL (3.9-5); Blood Urea Nitrogen 8 mg/dL (9-20); Calcium 9.1 mg/dL (8.4-10.2); Hemolysis Index 33
[2021-12-30 19:15] LABS: BUN/Creatinine Ratio 11
--- NOTE | 2021-12-31 08:39 | Electrocardiograph Report ---
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
[2021-12-31] MEDS ORDERED: SODIUM CHLORIDE 0.9% 1000 ML 1,000 ML ONE (15:55)
[2021-12-31] MEDS ORDERED: THIAMINE 100 MG, FOLIC ACID 1 MG, MULTIPLE VITAMIN INJ, ADULT 10 ML in SODIUM CHLORIDE ... IV ONE (16:55)
[2021-12-31] MEDS ORDERED: MAGNESIUM SULFATE 2 GM/50 ML BAG IV ONE (16:55)
[2021-12-31] MEDS ORDERED: LORazepam 2 MG/ML VIAL IV PRN ×3 (16:56)
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
[2021-12-31] MEDS ORDERED: chlordiazePOXIDE 25 MG CAP PO PRN ×2 (17:19)
[2021-12-31] MEDS ORDERED: AMITRIPTYLINE 25 MG TAB PO ONE (23:21)
[2022-01-01] MEDS ORDERED: carvediloL 3.125 MG TAB PO SCH (08:00)
[2022-01-01] MEDS ORDERED: carvediloL 12.5 MG TAB PO SCH (08:00)
[2022-01-01] MEDS ORDERED: SPIRONOLACTONE 25 MG TAB PO SCH (10:00)
[2022-01-01] MEDS ORDERED: FUROSEMIDE 40 MG TAB PO SCH ×2 (10:00)
[2022-01-01] MEDS ORDERED: amLODIPine 5 MG TAB PO SCH (10:00)
[2022-01-01] MEDS ORDERED: amLODIPine 10 MG TAB PO SCH (10:00)
[2022-01-01] MEDS ORDERED: LISINOPRIL 20 MG TAB PO SCH (10:00)
[2022-01-01] MEDS ORDERED: ASPIRIN EC 81 MG TAB PO SCH ×2 (10:00)
[2022-01-01] MEDS ORDERED: DULoxetine 30 MG CAP PO SCH ×2 (10:00)
[2022-01-01 10:30] VITALS: BP 123/70
[2022-01-01] MEDS ORDERED: AMITRIPTYLINE 25 MG TAB PO SCH ×2 (22:00)
== END 2022-01-01 12:24 | disposition home or self-care (01) ==
LOC: ED 16:10
DX: R07.89 Other chest pain (principal); Z53.21 Procedure and treatment not carried out due to patient leaving prior to being seen by health care provider
CPT/HCPCS: 36415; 71046; 80053; 84484; 85025; 85379; 85610; 85730; 93005; J3411; J3475; J3490; J7030